=== PATIENT | female | born 1945 | race Caucasian/White ===

== ENCOUNTER 2017-02-22 14:24 | Emergency (ER) | payer OTHER ==
[~2017-02-22] VITALS: Ht 162.6 cm; Wt 72.8 kg
[~2017-02-22 14:24] MED LIST: AMANTADINE50 MG/5 ML PO; BACLOFEN10 MG PO; CILOSTAZOL50 MG PO; CLARITIN,ALAVAR10 MG PO; COLACE100 MG PO; COUMADIN3 MG PO; COUMADIN4 MG GT; COUMADIN4 MG PO; DOCU LIQUI50 MG/5 ML PO; DULCOLAX10 MG PR; DUONEB 2.5-0.5 M3 ML AEROSOL; FLEET MINERAL133 ML PR; GABAPENTIN100 MG GT; GAVILAX17 GM PO; GLUTOSE 1537.5 GM PO; KEPPRA500 MG PO; KLOR-CON M2020 MEQ PO; KLOR-CON20 MEQ PO; LANSOPRAZOLE15 MG PO; LANTUS 10100 UNITS/ SC; LEVEMIR100 UNIT/2 SC; LOPRESSOR25 MG PO; LOPRESSOR50 MG PO; LOVENOX40 MG/0.4 SC; METOPROLOL SUCC25 MG PO; MILK OF MAGN PO; MUCINEX600 MG PO; NEURONTIN100 MG GT; NEURONTIN300 MG PO; NORVASC10 MG PO; PAIN RELIE160 MG/52 PO; PREVACID30 MG PO; ROCEPHIN1 GM/50 ML IV; SENNA PLUS TAB1 EACH PO; SYMMETREL100 M1 PO; TEARS NATURALE-15 ML BOTH EYES; TRAMADOL HCL50 MG PO; TYLENOL REGULA325 MG PO; ZOLOFT50 MG PO
[2017-02-22 18:00] VITALS: BP 131/80
== END 2017-02-22 20:02 ==
LOC: EME 14:24
DX: M25.512 Pain in left shoulder (principal); I69.354 Hemiplegia and hemiparesis following cerebral infarction affecting left non-dominant side; I10 Essential (primary) hypertension; E11.9 Type 2 diabetes mellitus without complications; J44.9 Chronic obstructive pulmonary disease, unspecified; E78.5 Hyperlipidemia, unspecified; F32.9 Major depressive disorder, single episode, unspecified; Z87.891 Personal history of nicotine dependence; Z79.4 Long term (current) use of insulin
CPT/HCPCS: 73030; 99281; 99285

== ENCOUNTER 2017-06-01 19:00 | Emergency (ER) | payer OTHER ==
[~2017-06-01] VITALS: Ht 172.7 cm; Wt 47.0 kg
[2017-06-01 19:54] LABS: HEMATOCRIT 42.9 % (36.0-46.0); MCH 28.3 PG (29.0-34.0); MCHC 32.2 G/DL (30.0-36.0); MCV 87.9 FL (83-99); MEAN PLAT.VOLUME 10.8 uM^3 (9.5-12.4); PLATELET COUNT 265 K/uL (156-360); RBC DIS.WIDTH-CV 15.4 % (11.8-14.6); RBC DIS.WIDTH-SD 49.5 % (39-53); RED BLOOD COUNT 4.88 M/uL (3.80-5.20); WHITE BLOOD COUNT 7.2 K/uL (4.1-10.2)
[2017-06-01 20:09] LABS: INTER. NORMALIZED RATIO 3.6; PROTHROMBIN TIME 42.2 SEC (10.2-12.9)
[2017-06-01 20:12] LABS: PTT 48.5 SEC (25-37)
[2017-06-01 20:18] LABS: TROP-I INTERPRETATION NEGATIVE; TROPONIN-I < 0.01 ng/mL (0.0-0.30)
[2017-06-01 20:28] LABS: CHLORIDE 114 mEq/L (99-109); POTASSIUM 4.3 mEq/L (3.7-5.4); SODIUM 141 mEq/L (136-147)
[2017-06-01 20:30] LABS: GLUCOSE 162 mg/dL (70-99)
[2017-06-01 20:31] LABS: ANION GAP 8 MEQ/L (2-14)
[2017-06-01 20:34] LABS: GFR ESTIMATE (CALCULATED) > 59 mL/min/; UREA NITROGEN (BUN) 13 mg/dL (9-23)
[2017-06-01 22:00] VITALS: BP 138/72
== END 2017-06-01 22:03 ==
LOC: EME → EDBD 19:00 → EME 19:00
PROVIDERS: Emergency Medicine
DX: G93.40 Encephalopathy, unspecified (principal); J44.9 Chronic obstructive pulmonary disease, unspecified; I10 Essential (primary) hypertension; E78.5 Hyperlipidemia, unspecified; E11.9 Type 2 diabetes mellitus without complications; Z86.73 Personal history of transient ischemic attack (TIA), and cerebral infarction without residual deficits; Z79.4 Long term (current) use of insulin; Z79.01 Long term (current) use of anticoagulants; Z87.891 Personal history of nicotine dependence
CPT/HCPCS: 70450; 71010; 80048; 84484; 85027; 85610; 85730; 93005; 99281; 99285; J7030